=== PATIENT | female | born 1960 | race Hispanic/Latino ===

== ENCOUNTER 2020-10-10 11:06 | Observation (INO) | payer OTHER ==
[~2020-10-10] VITALS: Ht 157.5 cm; Wt 101.8 kg
[~2020-10-10 11:06] MED LIST: [UNRECOGNIZED DRUG - OTHER]
[2020-10-10] MEDS ORDERED: ASPIRIN 81 MG CHEW TAB PO ONE (11:15)
[2020-10-10 11:30] LABS: BASOPHILS # (AUTO) 0.1 (0.0-0.1); BASOPHILS % 0.6 % (0.0-1.0); EOSINOPHILS # (AUTO) 0.4 (0.0-0.4); EOSINOPHILS % 4.2 % (0.0-6.0); HEMATOCRIT 36.8 % (34.2-44.1); LYMPHOCYTES # (AUTO) 3.8 (1.0-3.2); LYMPHOCYTES % 38.1 % (18.0-39.1); MEAN CORPUSCULAR HEMOGLOBIN 30.5 pg (28-32); MEAN CORPUSCULAR HGB CONC 32.6 g/dL (31-35); MEAN CORPUSCULAR VOLUME 93.6 fL (81-99); MONOCYTES # (AUTO) 0.6 (0.2-0.8); MONOCYTES % 5.5 % (4.4-11.3); NEUTROPHILS # (AUTO) 5.2 (2.1-6.9); NEUTROPHILS % 51.3 % (38.7-80.0); PLATELET COUNT 263 x10e3/uL (140-360); RED BLOOD COUNT 3.93 x10e6/uL (3.6-5.1); RED CELL DISTRIBUTION WIDTH 12.9 % (11.7-14.4)
[2020-10-10 11:51] LABS: ALANINE AMINOTRANSFERASE 12 IU/L (0-55); ALBUMIN 3.5 g/dL (3.5-5.0); ALBUMIN/GLOBULIN RATIO 0.9 (0.8-2.0); ALKALINE PHOSPHATASE 90 IU/L (40-150); BLOOD UREA NITROGEN 11 mg/dL (7-26); BUN/CREATININE RATIO 14 (6-25); CALCIUM 7.1 mg/dL (8.4-10.2); CARBON DIOXIDE 23 mmol/L (22-29); CHLORIDE 103 mmol/L (98-107); CREATINE KINASE 201 IU/L (29-168); CREATININE, SERUM 0.81 mg/dL (0.57-1.11); EST GLOMERULAR FILTRATION RATE > 60 ML/MIN (60-); GLUCOSE 212 mg/dL (74-118); SODIUM 141 mmol/L (136-145)
[2020-10-10] MEDS ORDERED: SODIUM CHLORIDE 0.9% 1000ML 1,000 ML IV SCH (12:15)
[2020-10-10] MEDS ORDERED: CALCIUM GLUCONATE 10% INJ 4.65 MEQ in SODIUM CHLORIDE 0.9% 50ML 50 ML IV ONE (12:15)
[2020-10-10 14:01] VITALS: BP 116/55
[2020-10-10 14:25] VITALS: BP 116/55
[2020-10-10] MEDS ORDERED: WIXELA 250-501 EACH INH (14:57)
[2020-10-10] MEDS ORDERED: VITAMIN C500 MG PO (14:57)
[2020-10-10] MEDS ORDERED: ZYRTEC10 M3 PO (14:57)
[2020-10-10] MEDS ORDERED: JARDIANCE10 MG PO (14:57)
[2020-10-10] MEDS ORDERED: BENADRYL25 M1 PO (14:57)
[2020-10-10] MEDS ORDERED: CRESTOR10 MG PO (14:57)
[2020-10-10] MEDS ORDERED: VITAMIN D325 MCG PO (14:57)
[2020-10-10] MEDS ORDERED: LANTUS100 UNIT/1 SQ (14:57)
[2020-10-10] MEDS ORDERED: INSULIN LI100 UNIT/1 SQ (14:57)
[2020-10-10] MEDS ORDERED: PROAIR HFA INH8.5 GM INH (14:57)
[2020-10-10] MEDS ORDERED: TYLENOL325 MG PO (14:57)
[2020-10-10] MEDS ORDERED: ASPIRIN81 MG PO (14:57)
[2020-10-10] MEDS ORDERED: MULTI-VITAMIN1 EACH PO (14:57)
[2020-10-10] MEDS ORDERED: METOPROLOL TART25 MG PO (14:57)
[2020-10-10] MEDS ORDERED: ISOSORBIDE MONO30 MG PO (14:57)
[2020-10-10] MEDS ORDERED: FLONASE ALLERG9.9 ML INH (14:57)
[2020-10-10] MEDS ORDERED: AMLODIPINE BESYL5 MG PO (14:57)
[2020-10-10] MEDS ORDERED: NITROSTAT0.4 MG SL (14:57)
[2020-10-10] MEDS ORDERED: COQ-10100 MG PO (14:57)
[2020-10-10] MEDS ORDERED: LEVOTHYROXINE88 MCG PO (15:01)
[2020-10-10] MEDS ORDERED: CALCITRIOL0.5 MCG PO (15:01)
[2020-10-10] MEDS ORDERED: ONDANSETRON HCL INJ 2MG/ML 2ML 2 MG/ML VIAL IV PRN (15:45)
[2020-10-10] MEDS ORDERED: BENZONATATE 100 MG CAP PO PRN (15:45)
[2020-10-10] MEDS ORDERED: LIDOCAINE 4% PATCH TP PRN (15:45)
[2020-10-10] MEDS ORDERED: POTASSIUM CHLORIDE 20 MEQ TAB CR PO PRN (15:45)
[2020-10-10] MEDS ORDERED: DOCUSATE SODIUM 100 MG CAP PO PRN (15:45)
[2020-10-10] MEDS ORDERED: ALBUTEROL/IPRATROPIUM 3 ML NEB NEB PRN (15:45)
[2020-10-10] MEDS ORDERED: DIPHENHYDRAMINE HCL 25 MG CAP PO PRN ×2 (15:45→16:15)
[2020-10-10] MEDS ORDERED: CHLORASEPTIC SPRAY 177 ML BTL MM PRN (15:45)
[2020-10-10] MEDS ORDERED: POLYETHYLENE GLYCOL 3350 17 GM PACK PO PRN (15:45)
[2020-10-10 16:10] VITALS: BP 129/72
[2020-10-10] MEDS ORDERED: DEXTROSE 50% SYRINGE 50 ML IV PRN (16:15)
[2020-10-10] MEDS ORDERED: INSULIN GLARGINE HUM REC ANLOG 40 UNIT SQ SCH (17:00)
[2020-10-10] MEDS: METOPROLOL TARTRATE 25 MG TAB PO SCH (17:42)
[2020-10-10] MEDS: INSULIN GLARGINE 100 UNITS/ML VIAL SQ SCH (17:45)
[2020-10-10] MEDS: ENOXAPARIN SOD INJ 40 MG/0.4 ML SYR SC SCH (17:45)
[2020-10-10] MEDS: CALCIUM GLUCONATE 10% INJ 9.3 MEQ in SODIUM CHLORIDE 0.9% 250ML 250 ML IV SCH ×2 (18:28→22:53)
[2020-10-10] MEDS ORDERED: ACETAMINOPHEN/CODEINE 300MG - 30MG TAB PO PRN (18:30)
[2020-10-10] MEDS: SALMETEROL/FLUTICASONE 250/50 INH SCH (19:45)
[2020-10-10 20:00] VITALS: BP 109/54
[2020-10-10] MEDS ORDERED: MELATONIN 5 MG TABLET PO PRN (21:00)
[2020-10-10] MEDS: SIMVASTATIN 20 MG TAB PO SCH (21:00)
[2020-10-11] VITALS (8 sets, daily range): BP systolic 111–123; BP diastolic 55–67
[2020-10-11] MEDS: CALCIUM GLUCONATE 10% INJ 9.3 MEQ in SODIUM CHLORIDE 0.9% 250ML 250 ML IV SCH ×5 (04:00→23:02)
[2020-10-11] MEDS: LEVOTHYROXINE SODIUM 100 MCG TAB PO SCH (05:04)
[2020-10-11 05:05] LABS: BASOPHILS # (AUTO) 0.1 (0.0-0.1); BASOPHILS % 0.6 % (0.0-1.0); EOSINOPHILS # (AUTO) 0.4 (0.0-0.4); EOSINOPHILS % 4.5 % (0.0-6.0); HEMATOCRIT 35.5 % (34.2-44.1); HEMOGLOBIN 11.8 g/dL (12.0-16.0); LYMPHOCYTES # (AUTO) 3.7 (1.0-3.2); LYMPHOCYTES % 38.1 % (18.0-39.1); MEAN CORPUSCULAR HEMOGLOBIN 31.1 pg (28-32); MEAN CORPUSCULAR HGB CONC 33.2 g/dL (31-35); MEAN CORPUSCULAR VOLUME 93.4 fL (81-99); MONOCYTES # (AUTO) 0.7 (0.2-0.8); MONOCYTES % 6.9 % (4.4-11.3); NEUTROPHILS # (AUTO) 4.9 (2.1-6.9); NEUTROPHILS % 49.7 % (38.7-80.0); PLATELET COUNT 280 x10e3/uL (140-360); RED CELL DISTRIBUTION WIDTH 12.7 % (11.7-14.4)
[2020-10-11] MEDS: LEVOTHYROXINE SODIUM 75 MCG TAB PO SCH (05:05)
[2020-10-11 05:28] LABS: ALANINE AMINOTRANSFERASE 11 IU/L (0-55); ALBUMIN 3.2 g/dL (3.5-5.0); ALBUMIN/GLOBULIN RATIO 0.9 (0.8-2.0); ALKALINE PHOSPHATASE 79 IU/L (40-150); ANION GAP 16.7 mmol/L (8-16); BLOOD UREA NITROGEN 11 mg/dL (7-26); BUN/CREATININE RATIO 16 (6-25); CALCIUM 8.2 mg/dL (8.4-10.2); CARBON DIOXIDE 22 mmol/L (22-29); CHLORIDE 105 mmol/L (98-107); EST GLOMERULAR FILTRATION RATE > 60 ML/MIN (60-); GLUCOSE 100 mg/dL (74-118); POTASSIUM 3.7 mmol/L (3.5-5.1); SODIUM 140 mmol/L (136-145)
[2020-10-11] MEDS: METOPROLOL TARTRATE 25 MG TAB PO SCH ×2 (07:54→17:33)
[2020-10-11] MEDS: ASPIRIN 81 MG CHEW TAB PO SCH (07:54)
[2020-10-11] MEDS: AMLODIPINE BESYLATE 5 MG TAB PO SCH (07:54)
[2020-10-11] MEDS: LORATADINE 10 MG TAB PO SCH (07:54)
[2020-10-11] MEDS: PANTOPRAZOLE SOD 40 MG TABEC PO SCH (07:54)
[2020-10-11] MEDS: ISOSORBIDE MONONITRATE 30 MG TAB CR PO SCH (07:54)
[2020-10-11] MEDS: CALCITRIOL 0.25 MCG CAP PO SCH (07:55)
[2020-10-11] MEDS: SALMETEROL/FLUTICASONE 250/50 INH SCH ×2 (08:00→18:03)
[2020-10-11] MEDS: INSULIN GLARGINE 100 UNITS/ML VIAL SQ SCH ×2 (08:01→17:34)
[2020-10-11] MEDS ORDERED: LEVOTHYROXINE SODIUM 88 MCG TAB PO SCH (09:00)
[2020-10-11] MEDS ORDERED: SIMVASTATIN 40 MG TAB PO SCH (09:00)
[2020-10-11] MEDS: ENOXAPARIN SOD INJ 40 MG/0.4 ML SYR SC SCH (17:33)
[2020-10-11] MEDS: CALCIUM CARBONATE 500 MG CHEWABLE TABS PO SCH ×2 (17:34→20:16)
[2020-10-11] MEDS: SIMVASTATIN 20 MG TAB PO SCH (20:16)
[2020-10-12] VITALS: BP 133/71
[2020-10-12 04:00] VITALS: BP 139/72
[2020-10-12 06:12] LABS: BASOPHILS # (AUTO) 0.1 (0.0-0.1); BASOPHILS % 0.7 % (0.0-1.0); EOSINOPHILS # (AUTO) 0.4 (0.0-0.4); EOSINOPHILS % 3.3 % (0.0-6.0); HEMATOCRIT 37.8 % (34.2-44.1); HEMOGLOBIN 12.4 g/dL (12.0-16.0); LYMPHOCYTES # (AUTO) 3.3 (1.0-3.2); LYMPHOCYTES % 29.9 % (18.0-39.1); MEAN CORPUSCULAR HEMOGLOBIN 30.2 pg (28-32); MEAN CORPUSCULAR HGB CONC 32.8 g/dL (31-35); MONOCYTES # (AUTO) 0.7 (0.2-0.8); MONOCYTES % 6.6 % (4.4-11.3); NEUTROPHILS # (AUTO) 6.4 (2.1-6.9); PLATELET COUNT 274 x10e3/uL (140-360); RED BLOOD COUNT 4.11 x10e6/uL (3.6-5.1); RED CELL DISTRIBUTION WIDTH 12.7 % (11.7-14.4)
[2020-10-12] MEDS: LEVOTHYROXINE SODIUM 100 MCG TAB PO SCH (06:46)
[2020-10-12] MEDS: LEVOTHYROXINE SODIUM 75 MCG TAB PO SCH (06:46)
[2020-10-12 07:19] LABS: ALANINE AMINOTRANSFERASE 12 IU/L (0-55); ALBUMIN 3.4 g/dL (3.5-5.0); ALBUMIN/GLOBULIN RATIO 0.9 (0.8-2.0); ALKALINE PHOSPHATASE 81 IU/L (40-150); ANION GAP 18.1 mmol/L (8-16); BLOOD UREA NITROGEN 13 mg/dL (7-26); BUN/CREATININE RATIO 18 (6-25); CALCIUM 8.9 mg/dL (8.4-10.2); CARBON DIOXIDE 25 mmol/L (22-29); CHLORIDE 102 mmol/L (98-107); CREATININE, SERUM 0.74 mg/dL (0.57-1.11); EST GLOMERULAR FILTRATION RATE > 60 ML/MIN (60-); GLUCOSE 155 mg/dL (74-118); POTASSIUM 4.1 mmol/L (3.5-5.1); SODIUM 141 mmol/L (136-145)
[2020-10-12] MEDS: SALMETEROL/FLUTICASONE 250/50 INH SCH (07:30)
[2020-10-12 08:11] VITALS: BP 121/67
[2020-10-12] MEDS: LORATADINE 10 MG TAB PO SCH (08:53)
[2020-10-12] MEDS: ASPIRIN 81 MG CHEW TAB PO SCH (08:53)
[2020-10-12] MEDS: PANTOPRAZOLE SOD 40 MG TABEC PO SCH (08:53)
[2020-10-12] MEDS: CALCITRIOL 0.25 MCG CAP PO SCH (08:54)
[2020-10-12] MEDS: CALCIUM CARBONATE 500 MG CHEWABLE TABS PO SCH ×2 (08:54→13:09)
[2020-10-12] MEDS: METOPROLOL TARTRATE 25 MG TAB PO SCH (08:54)
[2020-10-12] MEDS: ISOSORBIDE MONONITRATE 30 MG TAB CR PO SCH (08:54)
[2020-10-12] MEDS: AMLODIPINE BESYLATE 5 MG TAB PO SCH (08:54)
[2020-10-12] MEDS: INSULIN GLARGINE 100 UNITS/ML VIAL SQ SCH (08:55)
[2020-10-12] MEDS: CALCIUM GLUCONATE 10% INJ 9.3 MEQ in SODIUM CHLORIDE 0.9% 250ML 250 ML IV SCH (08:59)
[2020-10-12 10:24] VITALS: BP 121/67
[2020-10-12 11:22] VITALS: BP 120/64
[2020-10-12 16:16] VITALS: BP 94/55
== END 2020-10-12 17:02 | disposition home or self-care (01) ==
LOC: ER 11:09 → INTOOBSV 12:17 → ERHOLD 12:17 → MED/SURG3 14:01
PROVIDERS: ADMIT Internal Medicine; ATTEND Internal Medicine
DX: E83.51 Hypocalcemia (principal); Z68.41 Body mass index [BMI] 40.0-44.9, adult; I10 Essential (primary) hypertension; E78.00 Pure hypercholesterolemia, unspecified; Z85.850 Personal history of malignant neoplasm of thyroid; E11.65 Type 2 diabetes mellitus with hyperglycemia; Z20.822 Contact with and (suspected) exposure to COVID-19; E89.0 Postprocedural hypothyroidism; E66.01 Morbid (severe) obesity due to excess calories
CPT/HCPCS: 36415 ×3; 80053 ×3; 82550; 82553; 82948 ×3; 83036; 83735; 84100; 84443; 84484; 85025 ×3; 93005; 94664; 97161; 99284; G0378 ×3; J0610 ×3; J1650 ×2; J1815; J7030; J7050 ×3; S0164 ×2; U0002